=== PATIENT | female | born 2000 | race Caucasian/White ===

== ENCOUNTER 2022-08-11 21:33 | Emergency (ER) | payer BC, SELFPAY ==
[2022-08-11 21:45] VITALS: BP 150/86; PULSE 94; RESP 18; TEMP 37; O2SAT 97; BMI 29.2
[2022-08-11] MEDS: LORazepam 1 MG TABLET PO (23:29)
--- NOTE | 2022-08-11 23:47 | ED.NURSE ---
DEC assessing patient.
--- NOTE | 2022-08-12 00:40 | ED.GENADULT ---
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 She tells me that she has had a longstanding problem with anxiety, has been on a number of different medications for that. She has a physician in [place] who has done medication management for her. Most recently, several months ago she was started on sertraline, initially at 25 mg. About a month ago she was increased to 50 mg, and she feels that that made her anxiety worse. As a result, a couple of days ago she decided on her own to decrease the dose in anticipation of discontinuing the medication completely. She feels as if decreasing the does has also made her anxiety worse. She feels that she is having a lot of thoughts that she just can not stand having her anxiety be this bad and she does not want to live anymore because her anxiety is so unbearable. She has not made an actual plan in terms of killing herself. She has no previous history of mental health hospitalizations. She has an episode a number of years ago of self cutting, no previous suicide attempts. She is close with her family and they are aware of what is going on. She has a counselor in [facility] that she works with closely, last saw them on Friday, has her next appointment on August 16 but she does not feel that that is soon enough. She says that she has started to use alcohol to some degree to manage her anxiety, is drinking fairly heavily on the weekends. She also says that she has smoked marijuana couple of times in the past month, had not smoked previously for quite some time. Denies other substance use. She says that she mostly feels like she needs a better outpatient plan, does not feel that she needs an inpatient stay. Related Data Home Medications Medication Instructions Recorded Confirmed cholecalciferol (vitamin D3) 25 25 mcg PO DAILY 08/11/22 08/11/22 mcg (1,000 unit) capsule hydroxyzine HCl 25 mg tablet 25 mg PO Q6H PRN 08/11/22 08/11/22 sertraline 25 mg tablet 25 mg PO Q24H 08/11/22 08/11/22 Allergies Allergy/AdvReac Type Severity Reaction Status Date / Time No Known Drug Allergies Allergy Verified 08/11/22 21:52 Review of Systems Status of ROS: Reports: 6 or more systems reviewed and unremarkable except as noted in History and below [facility] Medical History Anxiety Depression OCD (obsessive compulsive disorder) Panic attacks Social History Smoking Status: Never smoker Do you use any of these nicotine containing products: None Second hand tobacco smoke exposure: No How often do you have a drink containing alcohol: 2-4 times a month How many standard drinks containing alcohol do you have on a typical day: 5 or 6 How often do you have six or more drinks on one occasion: Less than monthly AUDIT-C Alcohol total score: 5 Non-prescribed substance use: marijuana (any form) service: No Exam Narrative: Exam Narrative: Vital signs as noted above. In general, an alert, well-appearing patient. Head: Normocephalic, atraumatic. Eyes: Pupils are equal reactive. Extraocular movements are full. Conjunctivae are normal. ENT: Mucous membranes are moist. Throat is normal. Neck: Supple without lymphadenopathy. Heart: Regular rate and rhythm. No murmur or rub. Lungs: Clear bilaterally. No increased work of breathing, crackles or wheezes. Abdomen: Soft and nontender. No organomegaly. Extremities: Well perfused. No edema. No calf tenderness. Pulses intact. Neurologic: Patient is alert and oriented to person and place. Speech is fluent. Face is symmetric. Moves all extremities equally. Affect: Normal. Skin: Warm and dry. Well perfused. Const: Vital Signs, click to edit/add: Vital Signs - 24 hr 08/11/22 21:45 Temperature 98.6 F Pulse Rate [Left P ulse Oximeter] 94 Respiratory Rate 18 Blood Pressure [Ri ght Upper Arm] 150/86 H Pulse Oximetry 97 Oxygen Delivery Me thod Room Air Documenting provider has reviewed patient's vital signs: yes Course Course Hospital Course: At this time I am going to have her talk with DEC and see what their assessment is. I did discuss with her that I would not advise her to completely discontinue the sertraline without a plan in place for replacement medication. She did request something for anxiety here and was given a mg of Ativan orally. DEC court of appeals judge feels that it would be reasonable to make an outpatient plan, and I am in agreement. She was able to get a psychiatry appointment set up for her tomorrow morning at 9:00 a.m., this will be a virtual appointment, but I think that is a good start for her. She can call her therapist today to make an emergency appointment sooner than August 16. Certainly at any time if she feels that this is simply not going to work, she can return to the emergency department. But overall, she feels comfortable with this plan was able to contract for safety. She has hydroxyzine that she uses to help with sleep, she can use this if needed for anxiety symptoms as well. Vital Signs Vital signs: Initial Vital Signs Temperature 98.6 F 08/11/22 21:45 Temperature Source Temporal Artery Scan 08/11/22 21:45 Pulse Rate 94 08/11/22 21:45 Pulse Rhythm 08/11/22 21:45 Respiratory Rate 18 08/11/22 21:45 Blood Pressure 150/86 H 08/11/22 21:45 Blood Pressure Mean 107 08/11/22 21:45 Blood Pressure Position Sitting 08/11/22 21:45 Pulse Oximetry 97 08/11/22 21:45 Oxygen Delivery Method 08/11/22 21:45 Vital Signs Temperature 98.6 F 08/11/22 21:45 Pulse Rate 94 08/11/22 21:45 Respiratory Rate 18 08/11/22 21:45 Blood Pressure 150/86 H 08/11/22 21:45 Pulse Oximetry 97 08/11/22 21:45 Oxygen Delivery Method 08/11/22 21:45 Temperature 98.6 F 08/11/22 21:45 Pulse Rate 94 08/11/22 21:45 Respiratory Rate 18 08/11/22 21:45 Blood Pressure 150/86 H 08/11/22 21:45 Pulse Oximetry 97 08/11/22 21:45 Oxygen Delivery Method 08/11/22 21:45 Discharge Plan Discharge Prescriptions: No Action sertraline 25 mg tablet 25 mg PO Q24H Label Comments: TAKE 1 TABLET BY MOUTH EVERY DAY hydroxyzine HCl 25 mg tablet 25 mg PO Q6H PRN Label Comments: TAKE 1 TABLET BY MOUTH FOUR TIMES DAILY NEEDED cholecalciferol (vitamin D3) 25 mcg (1,000 unit) capsule 25 mcg PO DAILY Follow Up/Referrals: Provider,Not a Local [Primary Care Provider] -
[2022-08-12 01:05] VITALS: BP 128/67; PULSE 68
== END 2022-08-12 01:06 | disposition home or self-care (01) ==
PROVIDERS: Emergency Provider Emergency Medicine
DX: R45.851 Suicidal ideations (principal); F41.9 Anxiety disorder, unspecified
CPT/HCPCS: 99284; A9270

== ENCOUNTER 2023-09-13 20:15 | Emergency (ER) | payer BC, SELFPAY ==
[2023-09-13] VITALS (10 sets, daily range): BP systolic 111–126; BP diastolic 66–72; PULSE 79–102; RESP 18; TEMP 36.3–36.9; O2SAT 96–100; BMI 29.2
--- NOTE | 2023-09-13 20:34 | ED.GENADULT ---
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 She was driving back today from her home town outside [place] when she developed vomiting diarrhea. She says she threw up in her lap in the car. She has had multiple episodes of watery diarrhea which is nonbloody, and multiple episodes of vomiting. Denies recent travel or antibiotics, no ill contacts that she is aware of. She says yesterday she had some right lower quadrant pain but that seems to have resolved. Denies prior abdominal surgeries, urinary symptoms, fevers, suspicion of . Related Data Home Medications Medication Instructions Recorded Confirmed cholecalciferol (vitamin D3) 25 25 mcg PO DAILY 08/11/22 09/13/23 mcg (1,000 unit) capsule venlafaxine 150 mg 150 mg PO DAILY 09/13/23 09/13/23 capsule,extended release 24 hr Allergies Allergy/AdvReac Type Severity Reaction Status Date / Time No Known Drug Allergies Allergy Verified 08/11/22 21:52 Review of Systems Status of ROS: Reports: 10 or more systems reviewed and unremarkable except as noted in History and below [facility] Medical History OCD (obsessive compulsive disorder) ?F42.9 - Obsessive-compulsive disorder, unspecified (ICD-10) Panic attacks ?F41.0 - Panic disorder [episodic paroxysmal anxiety] (ICD-10) Anxiety ?F41.9 - Anxiety disorder, unspecified (ICD-10) Depression ?F32.A - Depression, unspecified (ICD-10) Social History Smoking Status: Never smoker Do you use any of these nicotine containing products: None Second hand tobacco smoke exposure: No How often do you have a drink containing alcohol: 2-4 times a month How many standard drinks containing alcohol do you have on a typical day: 5 or 6 How often do you have six or more drinks on one occasion: Less than monthly AUDIT-C Alcohol total score: 5 Non-prescribed substance use: marijuana (any form) service: No Exam Narrative: Exam Narrative: Vital signs as noted above. In general, an alert, nontoxic young woman. Head: Normocephalic, atraumatic. Eyes: Pupils are equal reactive. Extraocular movements are full. Conjunctivae are normal. ENT: Mucous membranes are moist. Throat is normal. Neck: Supple without lymphadenopathy. Heart: Regular rate and rhythm. No murmur or rub. Lungs: Clear bilaterally. No increased work of breathing, crackles or wheezes. Abdomen: Soft and nontender. Bowel sounds present. Extremities: Well perfused. No edema. No calf tenderness. Pulses intact. Neurologic: Patient is alert and oriented to person and place. Speech is fluent. Face is symmetric. Moves all extremities equally. Affect: Normal. Skin: Warm and dry. Well perfused. Const: Vital Signs, click to edit/add: Vital Signs - 24 hr 09/13/23 20:26 09/13/23 22:55 Temperature 97.3 F L 98.4 F Pulse Rate [Pulse Oximeter] 82 Respiratory Rate 18 Blood Pressure [Ri ght Upper Arm] 126/71 Pulse Oximetry 98 Oxygen Delivery Me thod Room Air Documenting provider has reviewed patient's vital signs: yes Course Course ED Course: Abdominal exam is benign, multiple episodes of vomiting and diarrhea are suggestive of a viral cause but will check some labs, place an IV, give fluids, Zofran, reassess. Right now she has no right lower quadrant tenderness and symptoms are overall not highly suggestive of appendicitis. test pending. Diagnostic considerations include gastroenteritis, colitis, appendicitis, urinary tract infection or pyelonephritis, ovarian cyst or abscess, ectopic among others Patient had a L of normal saline, Zofran without significant improvement in nausea. She did feel quite a bit better after 10 mg of Reglan. Her white blood cell count was elevated at 14, left shift with 93% neutrophils. Labs otherwise were fairly unremarkable. CRP minimally elevated at 1.4, electrolytes normal. Urinalysis showed 4+ ketones but 0-2 red cells, 2-5 white cells moderate squames. test was negative. In talking with her, she says she did have fairly significant right lower quadrant pain yesterday and has had nausea for the past several days. I elected to do a CT scan just to rule out the someone unlikely possibility of an atypical appendicitis because of concerns about possible a rupture leading to resolution or improvement in her right lower quadrant pain from yesterday. CT scan by my review was unremarkable, final radiology read is as follows:FINDINGS: Lower chest: Unremarkable. Liver: Unremarkable. Normal in size and attenuation. No suspicious masses. Gallbladder and bile ducts: Unremarkable. No stones or inflammation. No biliary dilatation. Pancreas: Unremarkable. No mass or inflammation. Spleen: Unremarkable. Normal in size. No masses. Adrenal glands: Unremarkable. No nodules. Kidneys: Unremarkable. No suspicious masses, stones, or hydronephrosis. GI tract: Unremarkable. Normal in caliber. No sign of mass or inflammation. Normal appendix. Vasculature: Abdominal aorta is normal in caliber. Mesenteric arteries are patent. Lymph nodes: No lymphadenopathy. Peritoneum/Abdominal Wall: Unremarkable. No sign of mass or infiltration. No free air or significant free fluid. Pelvis: Retroflexed uterus.. Bones: Unremarkable for age. IMPRESSION: No acute intra-abdominal process identified. Ultimately, I think presentation is most consistent with gastroenteritis. Discussed that this is usually viral, symptoms usually resolve in 24-48 hours in terms of the vomiting. Diarrhea can persist. We talked about reasons to return such as severe abdominal pain, high fevers, bloody stools etcetera. Otherwise, clear liquids, advanced diet as able. Should be seen again for diarrhea that persists beyond 10 days. Vital Signs Vital signs: Initial Vital Signs Temperature 97.3 F L 09/13/23 20:26 Temperature Source Temporal Artery Scan 09/13/23 20:26 Pulse Rate 82 09/13/23 20:26 Respiratory Rate 18 09/13/23 20:26 Blood Pressure 126/71 09/13/23 20:26 Blood Pressure Mean 89 09/13/23 20:26 Blood Pressure Position Sitting 09/13/23 20:26 Pulse Oximetry 98 09/13/23 20:26 Oxygen Delivery Method Room Air 09/13/23 20:26 Vital Signs Temperature 97.3 F L 09/13/23 20:26 Pulse Rate 82 09/13/23 20:26 Respiratory Rate 18 09/13/23 20:26 Blood Pressure 126/71 09/13/23 20:26 Pulse Oximetry 98 09/13/23 20:26 Oxygen Delivery Method Room Air 09/13/23 20:26 Temperature 98.4 F 09/13/23 22:55 Pulse Rate 82 09/13/23 20:26 Respiratory Rate 18 09/13/23 20:26 Blood Pressure 126/71 09/13/23 20:26 Pulse Oximetry 98 09/13/23 20:26 Oxygen Delivery Method Room Air 09/13/23 20:26 Medications Administered Medications: Discontinued Medications Generic Name Dose Route Start Last Admin Trade Name Freq PRN Reason Stop Dose Admin Sodium Chloride 1,000 mls @ 1,000 mls/hr 09/13/23 20:45 09/13/23 23:30 0.9 % Sodium Chloride 1000 Ml IV 09/13/23 21:44 Infused .Q1H FISH Infusion Metoclopramide HCl 10 mg/ 102 mls @ 306 mls/hr 09/13/23 22:16 09/13/23 23:29 Sodium Chloride IVPB 09/13/23 22:17 Infused ONCE ONE Infusion Ondansetron HCl 4 mg 09/13/23 20:33 09/13/23 21:00 Ondansetron 2 Mg/Ml Inj IVP 09/13/23 20:34 4 mg ONCE ONE Administration Medical Decision Making Lab Data Labs: Lab Results 09/13/23 09/13/23 Range/Units 20:35 21:00 WBC 14.14 H (4.50-11.00) K/uL RBC 4.81 (4.00-5.20) m/uL Hgb 13.9 (12.0-16.0) gm/dL Hct 41.3 (33.0-51.0) % MCV 86 (80-100) fL MCH 29 (26-34) pg MCHC 34 (32-36) gm/dL RDW Coeff of Joyce 12.2 (11.5-15.5) % Plt Count 241 (140-440) K/uL Neut % (Auto) 93.3 H (42.0-72.0) % Lymph % (Auto) 2.8 L (20-44) % Christian % (Auto) 3.5 (0.0-11.0) % Eos % (Auto) 0.1 (0.0-7.0) % Baso % (Auto) 0.1 (0.0-3.0) % Neut # (Auto) 13.20 H (1.7-7.0) K/uL Lymph # (Auto) 0.40 L (0.90-2.90) K/uL Christian # (Auto) 0.50 (0.00-0.90) K/UL Eos # (Auto) 0.00 (0.00-0.50) K/uL Baso # (Auto) 0.00 (0.00-0.30) K/uL Abs Immat Gran (auto) 0.00 (0.00-0.30) K/uL Imm/Tot Granulo (auto) 0.2 % Sodium 137 (135-149) mmol/L Potassium 4.1 (3.6-5.1) mmol/L Chloride 106 (96-114) mmol/L Carbon Dioxide 21 (20-32) mmol/L Anion Gap 10 (7-15) mEq/L BUN 10 (5-24) mg/dL Creatinine 0.5 (0.5-1.5) mg/dL Estimated Creat Clear 152.40 Estimated GFR 136 ml/min Glucose 108 (60-115) mg/dL Calcium 9.7 (8.4-10.6) mg/dL C-Reactive Protein 1.4 H (0.5-1.0) mg/dL Urine Color Yellow (Yellow) Urine Appearance Clear (Clear) Urine pH 6.5 (5.0-8.5) Ur Specific [place] 1.025 (1.000-1.030) Urine Protein 1+ A (Negative) Urine Glucose (UA) Negative (Negative) Urine Ketones 4+ A (Negative) Urine Blood Negative (Negative) Urine Nitrite Negative (Negative) Urine Bilirubin 2+ A (Negative) Urine Urobilinogen 1.0 (0.2-1.0) Ur Leukocyte Esterase Negative (Negative) Urine RBC 0-2 (0-2) Urine WBC 2-5 (0-5) Ur Squamous Epith Cells Moderate A (None-Few) Urine Bacteria Moderate A (None) Urine HCG, Qual Negative (Negative) Discharge Plan Discharge Clinical Impression: Gastroenteritis Patient Disposition: Home, Self-Care Condition: Improved Instructions: Gastroenteritis (DC) Additional Instructions: Your CT scan is normal. Symptoms are likely viral, usually this resolves within 24-48 hours. The diarrhea may persist up to 7-10 days. For vomiting that last longer than 48 hours or diarrhea that lasts longer than 10 days you should be seen again. Stick with clear liquids for the next 12-24 hours, advance diet as your stomach allows. For new symptoms such as high fevers, bloody stools, severe abdominal pain, return for re-evaluation at any time. Prescriptions: No Action venlafaxine 150 mg capsule,extended release 24hr 150 mg PO DAILY cholecalciferol (vitamin D3) 25 mcg (1,000 unit) capsule 25 mcg PO DAILY Follow Up/Referrals: Provider,Not a Local [Primary Care Provider] - Stand Alone Forms: [email or web address] Info Instructions
[2023-09-13 20:53] LABS: Appearance Urine Clear (Clear); Bilirubin Urine 2+ (Negative); Blood Urine Negative (Negative); Color Urine Yellow (Yellow); Glucose Urine Negative (Negative); Ketones Urine 4+ (Negative); Leukocyte Esterase Urine Negative (Negative); Nitrite Urine Negative (Negative); Protein Urine 1+ (Negative); Specific Gravity Urine 1.025 (1.000-1.030); pH Urine 6.5 (5.0-8.5)
[2023-09-13 20:56] LABS: Ur HCG Qualitative* Negative (Negative)
[2023-09-13] MEDS: 0.9 % SODIUM CHLORIDE 1000 ml 1,000 ML IV (21:00)
[2023-09-13] MEDS: ONDANSETRON 2 MG/ML inj 4 MG IVP (21:00)
[2023-09-13 21:01] LABS: Bacteria Urine Moderate; RBC Urine 0-2 (0-2); Squamous Epithelial Cell Urine Moderate (None-Few)
[2023-09-13 21:09] LABS: Basophils Percent Auto 0.1 % (0.0-3.0); Eosinophils Percent Auto 0.1 % (0.0-7.0); Hematocrit 41.3 % (33.0-51.0); Hemoglobin* 13.9 gm/dL (12.0-16.0); Immature Granulocytes Pct Auto 0.2 %; Lymphocytes Percent Auto 2.8 % (20-44); Mean Corpuscular HGB Conc 34 gm/dL (32-36); Mean Corpuscular Hemoglobin 29 pg (26-34); Mean Corpuscular Volume 86 fL (80-100); Monocytes Percent Auto 3.5 % (0.0-11.0); Neutrophils Percent Auto 93.3 % (42.0-72.0); Platelet Count* 241 K/uL (140-440); RDW Coefficient of Variation % 12.2 % (11.5-15.5); Red Blood Count 4.81 m/uL (4.00-5.20); White Blood Count* 14.14 K/uL (4.50-11.00)
[2023-09-13 21:18] LABS: Slide Review Reflex No
[2023-09-13 21:21] LABS: Chloride* 106 mmol/L (96-114)
[2023-09-13 21:22] LABS: Potassium* 4.1 mmol/L (3.6-5.1); Sodium* 137 mmol/L (135-149)
[2023-09-13 21:24] LABS: Creatinine* 0.5 mg/dL (0.5-1.5); Estimated Glomerular Filt Rate 136 ml/min
[2023-09-13 21:25] LABS: Anion Gap 10 mEq/L (7-15); Blood Urea Nitrogen* 10 mg/dL (5-24); Carbon Dioxide* 21 mmol/L (20-32)
[2023-09-13 21:26] LABS: Calcium* 9.7 mg/dL (8.4-10.6); Glucose* 108 mg/dL (60-115)
[2023-09-13 21:28] LABS: C Reactive Protein* 1.4 mg/dL (0.5-1.0)
--- NOTE | 2023-09-13 22:16 | CT_ITS ---
Patient: BEATRIZ MELLO Facility:?[facility] Patient ID:?[id number] Site Patient ID:?[id number]. Site :?[id number] Study:?CT-Abdomen/Pelvis with 83cc [id number] contrast-09/13/2023 10:57:03 PM Ordering Physician:akin cespedes Final Report: INDICATION: RLQ pain, vomiting, diarrhea. TECHNIQUE: CT abdomen and pelvis acquired with 83 cc Isovue 370 IV contrast. COMPARISON: None. FINDINGS: Lower chest: Unremarkable. Liver: Unremarkable. Normal in size and attenuation. No suspicious masses. Gallbladder and bile ducts: Unremarkable. No stones or inflammation. No biliary dilatation. Pancreas: Unremarkable. No mass or inflammation. Spleen: Unremarkable. Normal in size. No masses. Adrenal glands: Unremarkable. No nodules. Kidneys: Unremarkable. No suspicious masses, stones, or hydronephrosis. GI tract: Unremarkable. Normal in caliber. No sign of mass or inflammation. Normal appendix. Vasculature: Abdominal aorta is normal in caliber. Mesenteric arteries are patent. Lymph nodes: No lymphadenopathy. Peritoneum/Abdominal Wall: Unremarkable. No sign of mass or infiltration. No free air or significant free fluid. Pelvis: Retroflexed uterus.. Bones: Unremarkable for age. IMPRESSION: No acute intra-abdominal process identified. Please note that all CT scans at this facility use dose modulation, iterative reconstruction, and/or weight-based dosing when appropriate to reduce radiation dose to as low as reasonably achievable. Dictated by Elise Dumas MD @ 09/13/2023 11:37:01 PM Signed by:?Elise Dumas MD @09/13/2023 11:37:01 PM (Electronic Signature)
[2023-09-13] MEDS: METOCLOPRAMIDE HCL 10 MG in 0.9 % SODIUM CHLORIDE 100 ml 100 ML 306 MG IVPB (22:34)
== END 2023-09-13 23:42 | disposition home or self-care (01) ==
PROVIDERS: Emergency Provider Emergency Medicine
DX: K52.9 Noninfective gastroenteritis and colitis, unspecified (principal)
CPT/HCPCS: 36415; 74177; 80048; 81001; 81025; 85025; 86140; 87086; 96365; 96375; 99284; 99285; J2405; J2765; J7030; Q9967